=== PATIENT | female | born 1935 | race Caucasian/White ===

== ENCOUNTER 2016-11-14 06:48 | Day surgery (SDC) | payer MEDICARE, BC ==
[~2016-11-14 06:48] MED LIST: Acetaminophen TAB* 325 MG PO PRN; Buffered Lidocaine 1% SYRIN* 5 ML/SYR SYRINGE INTRADERM ONE
[2016-11-14] MEDS ORDERED: Cyclopentolate 1% OPTH.SOL* 2 ML BTL ONE (07:54)
[2016-11-14] MEDS ORDERED: Flurbiprofen 0.03% OPTH.SOL* 2.5 ML BTL ONE (07:54)
[2016-11-14] MEDS ORDERED: Lidocaine 1% MPF* 2 ML VIAL ONE (07:54)
[2016-11-14] MEDS ORDERED: acetaZOLAMIDE TAB* 250 MG ONE (07:54)
[2016-11-14] MEDS ORDERED: Povidone Iodine 5% OPTH* 30 ML BTL ONE (07:55)
[2016-11-14] MEDS ORDERED: Phenylephrine 2.5% OPTH.SOL* 2 ML BTL ONE (07:55)
[2016-11-14] MEDS ORDERED: Neomycin/Polymy/Dex OPTH.SUSP* MAXITROL 0.1% 5 ML ONE (07:55)
[2016-11-14] MEDS ORDERED: Lidocaine 2% EPI 1:200000 MPF* 20 ML VIAL ONE (07:55)
[2016-11-14] MEDS ORDERED: Proparacaine 0.5% OPHTH.SOL* 15 ML BTL ONE (07:55)
[2016-11-14] MEDS ORDERED: fentaNYL* 50 MCG/ML 2 ML VIAL (100 MCG VIAL) ONE (08:27)
[2016-11-14] MEDS ORDERED: Midazolam* 1 MG/ML 2 ML VIAL (2 MG) ONE (08:27)
[2016-11-14 09:14] VITALS: BP 150/61
--- NOTE | 2016-11-15 01:14 | OP ---
OPERATIVE NOTE: DATE OF OPERATION: 11/14/16 - [facility] DATE OF : 37 SURGEON: Harris Cerda MD PREOPERATIVE DIAGNOSIS: Cataract, left eye. POSTOPERATIVE DIAGNOSIS: Cataract, left eye. OPERATIVE PROCEDURE: Phacoemulsification, left eye, with IOL. DESCRIPTION OF PROCEDURE: The patient was brought to the operating room after being given 1/2% Alcaine with epinephrine drops in the preoperative area. The eye was prepped and draped in the usual sterile fashion. Sterile drape and eyelid speculum were placed. Again, topical 1/2% Alcaine with epinephrine was given. A paracentesis incision was made at the 3 o'clock position with the No.75 blade. Clear cornea incision 2.2 x 2.2-mm was created at the 6 o'clock position starting at the anterior limbus using the 2.2-mm keratome. The anterior chamber was irrigated with 0.4 mL of 1% non-preservative intracameral lidocaine and filled with DisCoVisc. A capsulorrhexis was completed using the cystotome and the Utrata forceps. Hydrodissection was performed with balanced salt solution. The lens nucleus was removed with the Phacoemulsification handpiece without incident. Cortex was removed with the irrigation-aspiration handpiece. The capsular bag was re-inflated using DisCoVisc and an [id number] implant was inserted with the shooter. The irrigation-aspiration handpiece was used to remove all residual DisCoVisc. The eye was refilled with balanced salt solution and the wound checked and found to be watertight. Topical Maxitrol drops were given. [id number]/[facility] #: [id number] [facility]
== END 2016-11-14 09:08 | disposition home or self-care (01) ==
LOC: OREAST 06:48
PROVIDERS: ATTEND Specialist
DX: H25.812 Combined forms of age-related cataract, left eye (principal); I10 Essential (primary) hypertension; Z87.891 Personal history of nicotine dependence; M19.90 Unspecified osteoarthritis, unspecified site
CPT/HCPCS: A9270-GY; J2250; J3010; V2632

== ENCOUNTER 2016-11-22 13:19 | Emergency (ER) | payer MEDICARE, BC ==
--- NOTE | 2016-11-22 13:47 | UC ---
Ear Complaint HPI - HPI Summary HPI Summary: Bilat ear pain starting more than a week ago, R>L. Denies recent nasal congestion, dizziness, ear drainage, or cough. Feels like when she's had cerumen buildup in the past. - History of Current Complaint Chief Complaint: UCEar Stated Complaint: EAR ACHE Time Seen by Provider: 11/22/16 13:37 Hx Obtained From: Patient ?: No Onset/Duration: Gradual Onset, Lasting Days Severity Initially: Mild Severity Currently: Mild Aggravating Factors: Nothing Alleviating Factors: Nothing Associated Signs/Symptoms: Negative: Foreign Body Sensation, URI Symptoms - Allergies/Home Medications Allergies/Adverse Reactions: Allergies Allergy/AdvReac Type Severity Reaction Status Date / Time Amlodipine [From [facility]] Allergy Mild Edema Verified 11/22/16 13:26 PMH/Surg Hx/FS Hx/Imm Hx Previously Healthy: Yes - Surgical History Surgical History: Yes Surgery Procedure, Year, and Place: D&C 1985, Tonsillectomy age 10. AGE 22 RIGHT OVARY REMOVED. ANESTHESIA WITH CHILDBIRTHS - Family History Known Family History: Positive: Hypertension - Social History Alcohol Use: None Substance Use Type: None Smoking Status (MU): Former Smoker Type: Cigarettes Amount Used/How Often: 2-3 CIGARETTES PER DAY X 10 YEARS Length of Time of Smoking/Using Tobacco: 25 years Have You Smoked in the Last Year: No When Did the Patient Quit Smoking/Using Tobacco: 2010 Household Exposure Type: Cigarettes Review of Systems Constitutional: Negative Skin: Negative Eyes: Negative ENT: Ear Ache Respiratory: Negative Cardiovascular: Negative Gastrointestinal: Negative Genitourinary: Negative Motor: Negative Neurovascular: Negative Musculoskeletal: Negative Neurological: Negative Psychological: Negative All Other Systems Reviewed And Are Negative: Yes Physical Exam Triage Information Reviewed: Yes Appearance: Well-Appearing, No Pain Distress, Obese Vital Signs: Initial Vital Signs Temp 98.3 F 11/22/16 13:28 Pulse 93 11/22/16 13:28 Resp 20 11/22/16 13:28 BP 150/60 11/22/16 13:28 Pulse Ox 100 11/22/16 13:28 Vital Signs Reviewed: Yes Eye Exam: Normal Eyes: Positive: Conjunctiva Clear ENT: Positive: Hearing grossly normal, Pharynx normal, TMs normal - post-flush, Other: - bilat cerumen impaction Dental: Positive: Gross Decay/Caries @ Neck exam: Normal Respiratory Exam: Normal Respiratory: Positive: Chest non-tender, Lungs clear, Normal breath sounds, No respiratory distress, No accessory muscle use Cardiovascular Exam: Normal Cardiovascular: Positive: RRR, No Murmur Musculoskeletal Exam: Normal Neurological Exam: Normal Neurological: Positive: Alert Psychological Exam: Normal Skin Exam: Normal Ear Complaint Course/Dx - Differential Dx/Diagnosis Provider Diagnoses: bilat cerumen impaction Discharge - Discharge Plan Condition: Stable Disposition: HOME Patient Education Materials: Cerumen Impaction (ED) Referrals: Mark Abarca MD [Primary Care Provider] -
[2016-11-22 14:09] VITALS: BP 150/60
== END 2016-11-22 14:14 | disposition home or self-care (01) ==
LOC: UCCORT 13:19
DX: H61.23 Impacted cerumen, bilateral (principal); E66.9 Obesity, unspecified; Z87.891 Personal history of nicotine dependence
CPT/HCPCS: 99213; G0463

== ENCOUNTER 2016-12-01 08:26 | Emergency (ER) | payer MEDICARE, BC ==
[2016-12-01 08:33] VITALS: BP 172/77
--- NOTE | 2016-12-01 09:00 | UC ---
Respiratory Complaint HPI - HPI Summary HPI Summary: 1 WEEK OF COUGH, MILD AVILES AND SWOLLEN GLANDS. YESTERDAY STARTED FEELING BETTER AND TODAY FEELS EVEN BETTER. WASN'T SURE SHE NEEDED TO COME IN SO CAME IN ANYWAY. NO FEVER. N/V/D. - History of Current Complaint Chief Complaint: UCRespiratory Stated Complaint: SORE THROAT COUGH Time Seen by Provider: 12/01/16 08:48 Hx Obtained From: Patient Onset/Duration: Gradual Onset, Lasting Days, Still Present - BUT MUCH BETTER Timing: Constant Severity Initially: Moderate Severity Currently: Mild Pain Intensity: 0 Pain Scale Used: 0-10 Numeric Character: Cough: Nonproductive Aggravating Factors: Nothing Alleviating Factors: Spontaneous Resolution Associated Signs And Symptoms: Positive: URI, Nasal Congestion. Negative: Fever - Allergies/Home Medications Allergies/Adverse Reactions: Allergies Allergy/AdvReac Type Severity Reaction Status Date / Time Amlodipine [From [facility]] Allergy Mild Edema Verified 12/01/16 08:33 PMH/Surg Hx/FS Hx/Imm Hx Cardiovascular History: Hypertension - Surgical History Surgical History: Yes Surgery Procedure, Year, and Place: D&C 1985, Tonsillectomy age 10. AGE 22 RIGHT OVARY REMOVED. ANESTHESIA WITH CHILDBIRTHS - Family History Known Family History: Positive: Hypertension - Social History Alcohol Use: None Substance Use Type: None Smoking Status (MU): Former Smoker Type: Cigarettes Amount Used/How Often: 2-3 CIGARETTES PER DAY X 10 YEARS Length of Time of Smoking/Using Tobacco: 25 years Have You Smoked in the Last Year: No When Did the Patient Quit Smoking/Using Tobacco: 2010 Household Exposure Type: Cigarettes Review of Systems Constitutional: Negative ENT: Negative Respiratory: Cough Cardiovascular: Negative Gastrointestinal: Negative Neurological: Headache All Other Systems Reviewed And Are Negative: Yes Physical Exam Triage Information Reviewed: Yes Appearance: Well-Appearing, No Pain Distress, Well-Nourished Vital Signs: Initial Vital Signs Temp 97.8 F 12/01/16 08:29 Pulse 97 12/01/16 08:29 Resp 20 12/01/16 08:29 BP 172/77 12/01/16 08:29 Pulse Ox 100 12/01/16 08:29 Vital Signs Reviewed: Yes Eyes: Positive: Conjunctiva Clear ENT: Positive: Hearing grossly normal, Pharynx normal, TMs normal Neck: Positive: Supple, Nontender, No Lymphadenopathy Respiratory Exam: Normal Cardiovascular Exam: Normal Abdomen Description: Positive: Soft Musculoskeletal: Positive: No Edema Neurological: Positive: Alert Psychological: Positive: Age Appropriate Behavior Skin: Negative: rashes UC Diagnostic Evaluation - Laboratory O2 Sat by Pulse Oximetry: 100 Respiratory Course/Dx - Differential Dx/Diagnosis Provider Diagnoses: ACUTE URI - RESOLVING Discharge - Discharge Plan Condition: Stable Disposition: HOME Patient Education Materials: Upper Respiratory Infection (ED) Referrals: Mark Abarca MD [Primary Care Provider] - 2 Days Additional Instructions: MOST UPPER RESPIRATORY INFECTIONS ARE VIRAL AND DO NOT REQUIRE ANTIBIOTICS. GIVEN THAT YOU ARE FEELING SO MUCH BETTER SINCE YESTERDAY YOUR INFECTION IS INDEED LIKELY VIRAL AND SHOULD CONTINUE TO IMPROVE. IF YOU GET WORSE OR DO NOT CONTINUE TO IMPROVE FOLLOW-UP WITH YOUR PCP IN 2 -3 DAYS. YOU MAY ALSO CALL ME HERE TOMORROW BETWEEN 7A-12P IF YOU HAVE ANY QUESTIONS.
== END 2016-12-01 09:11 | disposition home or self-care (01) ==
LOC: UCEAST 08:26
DX: J06.9 Acute upper respiratory infection, unspecified (principal); I10 Essential (primary) hypertension; Z88.8 Allergy status to other drugs, medicaments and biological substances; Z87.891 Personal history of nicotine dependence
CPT/HCPCS: 99211; G0463

== ENCOUNTER 2016-12-02 09:00 | Emergency (ER) | payer MEDICARE, BC ==
[2016-12-02 09:27] VITALS: BP 190/101
--- NOTE | 2016-12-02 09:52 | UC ---
Respiratory Complaint HPI - HPI Summary HPI Summary: PT SEEN HERE YESTERDAY FOR 1 WEEK OF COUGH, AVILES AND SWOLLEN GLANDS. SHE REPORTED SHE WAS FEELING MUCH BETTER SO NO ABX WERE RX. TODAY SHE REPORTS SHE FEELS WORSE AGAIN. - History of Current Complaint Chief Complaint: UCRespiratory Stated Complaint: COUGH Time Seen by Provider: 12/02/16 09:34 Hx Obtained From: Patient Onset/Duration: Gradual Onset, Lasting Days, Still Present Timing: Constant Severity Initially: Moderate Severity Currently: Moderate Pain Intensity: 0 Pain Scale Used: 0-10 Numeric Character: Cough: Nonproductive Aggravating Factors: Nothing Alleviating Factors: Nothing Associated Signs And Symptoms: Positive: URI, Nasal Congestion - Allergies/Home Medications Allergies/Adverse Reactions: Allergies Allergy/AdvReac Type Severity Reaction Status Date / Time Amlodipine [From [facility]] Allergy Mild Edema Verified 12/02/16 09:27 PMH/Surg Hx/FS Hx/Imm Hx Cardiovascular History: Hypertension - Surgical History Surgical History: Yes Surgery Procedure, Year, and Place: D&C 1985, Tonsillectomy age 10. AGE 22 RIGHT OVARY REMOVED. ANESTHESIA WITH CHILDBIRTHS - Family History Known Family History: Positive: Hypertension - Social History Alcohol Use: None Substance Use Type: None Smoking Status (MU): Former Smoker Type: Cigarettes Amount Used/How Often: 2-3 CIGARETTES PER DAY X 10 YEARS Length of Time of Smoking/Using Tobacco: 25 years Have You Smoked in the Last Year: No When Did the Patient Quit Smoking/Using Tobacco: 2010 Household Exposure Type: Cigarettes Review of Systems Constitutional: Negative ENT: Nasal Discharge Respiratory: Cough Cardiovascular: Negative Neurological: Headache All Other Systems Reviewed And Are Negative: Yes Physical Exam Triage Information Reviewed: Yes Appearance: Well-Appearing, No Pain Distress, Well-Nourished Vital Signs: Initial Vital Signs Temp 97.4 F 12/02/16 09:24 Pulse 100 12/02/16 09:24 Resp 20 12/02/16 09:24 BP 190/101 12/02/16 09:24 Pulse Ox 98 12/02/16 09:24 Vital Signs Reviewed: Yes Eyes: Positive: Conjunctiva Clear ENT: Positive: Hearing grossly normal, Pharynx normal, TMs normal Neck: Positive: Supple, Nontender, No Lymphadenopathy Respiratory Exam: Normal Cardiovascular Exam: Normal Abdomen Description: Positive: Soft Musculoskeletal: Positive: No Edema Neurological: Positive: Alert Psychological: Positive: Age Appropriate Behavior Skin: Negative: rashes UC Diagnostic Evaluation - Laboratory O2 Sat by Pulse Oximetry: 98 Respiratory Course/Dx - Differential Dx/Diagnosis Provider Diagnoses: ACUTE BRONCHITIS Discharge - Discharge Plan Condition: Stable Disposition: HOME Prescriptions: Azithromycin [Azithromycin 500 MG TAB] 500 mg PO DAILY #5 tab Patient Education Materials: Acute Bronchitis (ED) Referrals: Mark Abarca MD [Primary Care Provider] - If Needed Additional Instructions: OKAY TO USE OTC COUGH SYRUP. PLEASE MONITOR YOUR BLOOD PRESSURE CLOSELY AND FOLLOW-UP WITH DR. ABARCA WITHIN THE NEXT 2-4 WEEKS IF IT REMAINS ELEVATED AT HOME.
== END 2016-12-02 10:00 | disposition home or self-care (01) ==
LOC: UCEAST 09:00
DX: J20.9 Acute bronchitis, unspecified (principal); I10 Essential (primary) hypertension; Z87.891 Personal history of nicotine dependence
CPT/HCPCS: 99212; G0463

== ENCOUNTER 2017-01-02 06:54 | Day surgery (SDC) | payer MEDICARE, BC ==
[~2017-01-02 06:54] MED LIST changes: +Buffered Lidocaine 0.9% SYRIN* 5 ML/SYR SYRINGE INTRADERM ONE; -Buffered Lidocaine 1% SYRIN* 5 ML/SYR SYRINGE INTRADERM ONE
[2017-01-02] MEDS ORDERED: Midazolam* 1 MG/ML 2 ML VIAL (2 MG) ONE ×2 (08:32→08:48)
[2017-01-02 09:17] VITALS: BP 133/55
--- NOTE | 2017-01-02 10:26 | OP ---
DATE OF OPERATION: 01/02/2017 - [facility] DATE OF : 1935. SURGEON: Harris Cerda M.D. PREOPERATIVE DIAGNOSIS: Cataract right eye. POSTOPERATIVE DIAGNOSIS: Cataract right eye. OPERATIVE PROCEDURE: Phacoemulsification right eye with IOL. DESCRIPTION OF PROCEDURE: The patient was brought to the operating room after being given 1/2% Alcaine with epinephrine drops in the preoperative area. The eye was prepped and draped in the usual sterile fashion. Sterile drape and eyelid speculum were placed. Again, topical 1/2% Alcaine with epinephrine was given. A paracentesis incision was made at the 9 o'clock position with the No.75 blade. Clear cornea incision 2.2 x 2.2-mm was created at the 12 o'clock position starting at the anterior limbus using the 2.2-mm keratome. The anterior chamber was irrigated with 0.4 mL of 1% non-preservative intracameral lidocaine and filled with DisCoVisc. A capsulorrhexis was completed using the cystotome and the Utrata forceps. Hydrodissection was performed with balanced salt solution. The lens nucleus was removed with the Phacoemulsification handpiece without incident. Cortex was removed with the irrigation-aspiration handpiece. The capsular bag was re-inflated using DisCoVisc and an [id number] implant was inserted with the shooter. The irrigation-aspiration handpiece was used to remove all residual DisCoVisc. The eye was refilled with balanced salt solution and the wound checked and found to be watertight. Topical Maxitrol drops were given. [id number]/[facility] #: [id number] [facility]
[2017-01-02] MEDS ORDERED: Lidocaine 1% MPF* 2 ML VIAL ONE (13:30)
[2017-01-02] MEDS ORDERED: Lidocaine 2% EPI 1:200000 MPF* 20 ML VIAL ONE (13:30)
[2017-01-02] MEDS ORDERED: Povidone Iodine 5% OPTH* 30 ML BTL ONE (13:30)
[2017-01-02] MEDS ORDERED: Cyclopentolate 1% OPTH.SOL* 2 ML BTL ONE (13:30)
[2017-01-02] MEDS ORDERED: Flurbiprofen 0.03% OPTH.SOL* 2.5 ML BTL ONE (13:30)
[2017-01-02] MEDS ORDERED: Phenylephrine 2.5% OPTH.SOL* 2 ML BTL ONE (13:30)
[2017-01-02] MEDS ORDERED: Neomycin/Polymy/Dex OPTH.SUSP* MAXITROL 0.1% 5 ML ONE (13:30)
[2017-01-02] MEDS ORDERED: Buffered Lidocaine 0.9% SYRIN* 5 ML/SYR SYRINGE ONE (13:30)
[2017-01-02] MEDS ORDERED: acetaZOLAMIDE TAB* 250 MG ONE (13:30)
[2017-01-02] MEDS ORDERED: Proparacaine 0.5% OPHTH.SOL* 15 ML BTL ONE (13:30)
== END 2017-01-02 09:28 | disposition home or self-care (01) ==
LOC: OREAST 06:54
PROVIDERS: ATTEND Specialist
DX: H25.811 Combined forms of age-related cataract, right eye (principal); H04.123 Dry eye syndrome of bilateral lacrimal glands; Z87.891 Personal history of nicotine dependence; I10 Essential (primary) hypertension; E78.5 Hyperlipidemia, unspecified
CPT/HCPCS: A9270-GY; J2250; V2632

== ENCOUNTER 2017-02-23 16:30 | Emergency (ER) | payer MEDICARE, BC ==
[2017-02-23 16:35] VITALS: BP 195/81
--- NOTE | 2017-02-23 17:35 | UC ---
Throat Pain/Nasal Harrison HPI - HPI Summary HPI Summary: ONE WEEK OF CONGESTON, THREE DAYS SORE THROAT, HEADACHE .DRY COUGH. SYMPTOMS WORSENNG - History of Current Complaint Chief Complaint: UCRespiratory Stated Complaint: THROAT PAIN Time Seen by Provider: 02/23/17 16:31 Hx Obtained From: Patient Onset/Duration: Gradual Onset, Lasting Weeks, Still Present Severity: Moderate Pain Intensity: 6 Pain Scale Used: 0-10 Numeric Cough: Nonproductive Associated Signs & Symptoms: Positive: Hoarseness, Sinus Discomfort, Nasal Discharge - Epiglottits Risk Factors Epiglottis Risk Factors: Negative - Allergies/Home Medications Allergies/Adverse Reactions: Allergies Allergy/AdvReac Type Severity Reaction Status Date / Time Amlodipine [From [facility]] Allergy Intermediate Edema Verified 02/23/17 16:36 PMH/Surg Hx/FS Hx/Imm Hx Previously Healthy: Yes - Surgical History Surgical History: Yes Surgery Procedure, Year, and Place: D&C [address] Stafford office, had a block, Tonsillectomy age 10. AGE 22 RIGHT OVARY REMOVED. ANESTHESIA WITH 3 CHILDBIRTHS. left cataract surgery with IOL - 10/2016 - Family History Known Family History: Positive: Hypertension - Social History Occupation: Retired Lives: With Family Alcohol Use: None Substance Use Type: None Smoking Status (MU): Former Smoker Type: Cigarettes Amount Used/How Often: 2-3 CIGARETTES PER DAY X 10 YEARS Length of Time of Smoking/Using Tobacco: 25 years Have You Smoked in the Last Year: No When Did the Patient Quit Smoking/Using Tobacco: 2010 Household Exposure Type: Cigarettes Review of Systems Constitutional: Negative Skin: Negative Eyes: Negative ENT: Sore Throat, Nasal Discharge, Sinus Congestion Respiratory: Cough Cardiovascular: Negative Gastrointestinal: Negative Genitourinary: Negative Motor: Negative Neurovascular: Negative Musculoskeletal: Negative Neurological: Negative Psychological: Negative All Other Systems Reviewed And Are Negative: Yes Physical Exam Triage Information Reviewed: Yes Appearance: Well-Appearing, No Pain Distress, Well-Nourished Vital Signs: Initial Vital Signs Temp 97.3 F 02/23/17 16:33 Pulse 111 02/23/17 16:33 Resp 18 02/23/17 16:33 BP 195/81 02/23/17 16:33 Pulse Ox 96 02/23/17 16:33 Vital Signs Reviewed: Yes Eye Exam: Normal ENT: Positive: Pharynx normal, Nasal congestion, TM bulging, TM dull Dental Exam: Normal Neck exam: Normal Neck: Positive: Supple, Nontender, No Lymphadenopathy Respiratory Exam: Other - COUGH Respiratory: Positive: Chest non-tender, Lungs clear, Normal breath sounds, No respiratory distress, No accessory muscle use Cardiovascular Exam: Normal Cardiovascular: Positive: RRR, No Murmur, Pulses Normal, Brisk Capillary Refill Abdominal Exam: Normal Abdomen Description: Positive: Nontender, No Organomegaly Musculoskeletal Exam: Normal Neurological Exam: Normal Psychological Exam: Normal Psychological: Positive: Normal Response To Family Skin Exam: Normal Throat Pain/Nasal Course/Dx - Differential Dx/Diagnosis Differential Diagnosis/HQI/PQRI: Pharyngitis, Tonsillitis, URI Provider Diagnoses: SINUSITIS, BRONCHITIS Discharge - Discharge Plan Condition: Stable Disposition: HOME Prescriptions: Azithromycin TAB* [Zithromax TAB (Z-COSMO) 250 mg #6 tabs] 250 mg PO DAILY #6 tab Benzonatate CAP* [Tessalon 100 MG CAP*] 100 mg PO TID PRN #15 cap PRN Reason: Cough Patient Education Materials: Sinusitis (ED), Acute Bronchitis (ED) Referrals: Mark Abarca MD [Primary Care Provider] -
== END 2017-02-23 17:16 | disposition home or self-care (01) ==
LOC: UCEAST 16:30
DX: J32.9 Chronic sinusitis, unspecified (principal); J40 Bronchitis, not specified as acute or chronic; Z87.891 Personal history of nicotine dependence
CPT/HCPCS: 87651; 99212; G0463

== ENCOUNTER 2017-10-20 08:39 | Emergency (ER) | payer MEDICARE, BC ==
--- OUTSIDE RECORDS SUMMARY | 2017-10-20 08:50 | XMS REPORT ---
:1935 External Reference #:[id number] Author Organization [facility] [facility] [employer] Address [address] [place] [address] Phone [phone] Care Team Providers Name Role Phone Mark Abarca M.D. Primary Care Physician Unavailable Payers Type Date Identification Numbers Payment Provider Subscriber Medicare Primary Policy Number: [id number] Medicare - NGS Adalgisa Snowott PayID: [id number] [address] [place] [address] Medicare Primary Policy Number: Dme-Specialty Claims [facility] Adalgisa Snowott [id number] PayID: [id number] [address] [place] [address] [facility] Policy Number: [id number] [place] [employer] [employer] Adalgisa Granadosermott PayID: [id number] [address] [address] [place] [address] Problems Date Description Provider Status Onset: 08/27/2016 Hypercholesterolemia Harris Cerda M.D. Active Onset: 08/27/2016 Essential hypertension Harris Cerda M.D. Active Onset: 08/27/2016 Arthritis Harris Cerda M.D. Active Onset: 10/09/2017 Conjunctival hemorrhage Maria Alejandra Kinney O.D. 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 Family History Date Family Member(s) Problem(s) Comments Father No Current Problems Mother No Current Problems Social History Type Date Description Comments Marital Status Legal Status: Occupation [employer] Work Status Retired ETOH Use Denies alcohol use Smoking Patient is a former smoker Recreational Drug Use Denies Drug Use Daily Caffeine Consumes on average 2 cups of regular coffee per day Allergies, Adverse Reactions, Alerts Date Description Reaction Status Severity Comments 08/27/2016 Norvasc active Medications Medication Date Status Form Strength Qnty SIG Indications Ordering Provider Captopril / Active Tablets 100mg Unknown 0000 Simvastatin / Active Tablets 40mg Unknown 0000 Tizanidine HCL / Active Tablets 2mg take 1 Unknown 0000 tablet by mouth every 8 hours (Up To 3 Times A Day) Melatonin / Active Capsules 2.5mg Unknown 0000 Aspirin / Active Chewtabs 81mg Unknown 0000 Artificial / Active Solution 0.2-0.2-1% as needed Harris JAddie Tears 0000 Arleo, M.D. Ibuprofen / Active Tablets 200mg as needed Unknown 0000 Combigan 01/03/ Hx Solution 0.2-0.5% 5ml One drop Harris J. 2017 - right eye Arleo, 01/04/ twice per M.D. 2017 day Prednisolone 12/28/ Hx Suspension 1% 10ml 1 drop Harris J. Acetate 2017 - right eye Arleo, 10/08/ twice day M.D. 2018 Ciprofloxacin 12/28/ Hx Solution 0.3% 5units instill Harris J. HCL 2017 - one drop Arleo, 01/04/ in the M.D. 2017 right eye three times a day, start the day before surgery Ketorolac 12/28/ Hx Solution 0.5% 10ml 1 drop Harris J. Tromethamine 2017 - right eye Arleo, 10/08/ twice a M.D. 2018 day Ciprofloxacin 11/09/ Hx Solution 0.3% 5ml instill Harris J. HCL 2017 - one drop Arleo, 12/04/ in the M.D. 2017 left eye three times a day, start the day before surgery Prednisolone 11/09/ Hx Suspension 1% 10ml 1 drops Harris J. Acetate 2017 - left eye Arleo, 12/04/ three M.D. 2017 times a day. taper as directed Ilevro 11/09/ Hx Suspension 0.3% 3ml 1 drop Harris J. 2017 - left eye Prashant, 12/04/ once Huy 2017 daily. start day before surgery Results Description No Information Procedures Date CPT Code Description Status 01/02/2017 65898 Extracapsular Cataract Extraction W/Intraocular Lens Completed 11/14/2016 36768 Extracapsular Cataract Extraction W/Intraocular Lens Completed 11/09/2016 50362 Ophthalmic Biometry Completed 11/09/2016 23668 Ophthalmic Biometry Completed 08/27/2016 76482 New Patient Comprehensive Exam Completed 03/22/2005 81446 Cancelled Appointment Completed Encounters Type Date Location Provider CPT E/M Dx Office Visit 11/09/2016 Harris Cerda MD, Harris BlandonAddie Cerda, [id number] H25.812 11:45a ruby Son H25.811 Plan of Care 10/09/2017 - Maria Alejandra Kinney O.D.H11.31 Conjunctival hemorrhage, right eyeComments:Smoking can increase the risk of developing or worsening any eye related disease, as well as affect your overall health. If you are a smoker, we strongly recommend that you quit.If you are not a smoker, we strongly recommend that you do not start. A conjunctival hemorrhage is a broken blood vessel on the surface of your eye usually caused by dryness or straining. It is like a bruise and it is not harmful. If the eye is uncomfortable at all, we recommend you use tear drops 3 times a day until it is resolved.Follow up:as needed
[2017-10-20 09:02] VITALS: BP 146/59
--- NOTE | 2017-10-20 09:24 | UC ---
Respiratory Complaint HPI - HPI Summary HPI Summary: pt has had a cough and very runny nose for 3-4 days, got worse this am, no nasal casey and cough worse. denies SOB but cough is making throat hurt as well. - History of Current Complaint Chief Complaint: UCRespiratory Stated Complaint: COUGH SORE THROAT RESP ISSUE Time Seen by Provider: 10/20/17 09:11 Hx Obtained From: Patient Onset/Duration: Gradual Onset Pain Intensity: 0 Character: Cough: Nonproductive Aggravating Factors: Nothing Alleviating Factors: Nothing Associated Signs And Symptoms: Positive: URI, Nasal Congestion. Negative: Fever , Chills, Dizziness - Allergies/Home Medications Allergies/Adverse Reactions: Allergies Allergy/AdvReac Type Severity Reaction Status Date / Time MS Amlodipine [From [facility]] Allergy Intermediate Edema Verified 02/23/17 16:36 PMH/Surg Hx/FS Hx/Imm Hx Previously Healthy: Yes Endocrine History: Dyslipidemia Cardiovascular History: Hypertension - Surgical History Surgical History: Yes Surgery Procedure, Year, and Place: D&C [address] Stafford office, had a block, Tonsillectomy age 10. AGE 22 RIGHT OVARY REMOVED. ANESTHESIA WITH 3 CHILDBIRTHS. left cataract surgery with IOL - 10/2016 - Family History Known Family History: Positive: Hypertension - Social History Occupation: Retired Lives: Alone Alcohol Use: None Substance Use Type: None Smoking Status (MU): Former Smoker Type: Cigarettes Amount Used/How Often: 2-3 CIGARETTES PER DAY X 10 YEARS Length of Time of Smoking/Using Tobacco: 25 years Have You Smoked in the Last Year: No When Did the Patient Quit Smoking/Using Tobacco: 2010 Household Exposure Type: Cigarettes Review of Systems Constitutional: Fatigue Skin: Negative ENT: Sore Throat, Sinus Congestion Respiratory: Cough Cardiovascular: Negative Gastrointestinal: Negative Genitourinary: Negative Neurological: Negative Psychological: Negative Is Patient Immunocompromised?: No All Other Systems Reviewed And Are Negative: Yes Physical Exam Triage Information Reviewed: Yes Appearance: Well-Appearing, No Pain Distress, Obese Vital Signs: Initial Vital Signs Temp 97.9 F 10/20/17 08:51 Pulse 104 10/20/17 08:51 Resp 20 10/20/17 08:51 BP 146/59 10/20/17 08:51 Pulse Ox 99 10/20/17 08:51 Vital Signs Reviewed: Yes Eyes: Positive: Conjunctiva Clear ENT: Positive: Pharyngeal erythema, Nasal congestion, Nasal drainage, TMs normal. Negative: Sinus tenderness Neck exam: Normal Neck: Positive: Supple, Nontender, No Lymphadenopathy Respiratory Exam: Normal Respiratory: Positive: Lungs clear Cardiovascular Exam: Normal Cardiovascular: Positive: RRR Neurological Exam: Normal Neurological: Positive: Alert Psychological Exam: Normal Skin Exam: Normal Skin: Negative: rashes UC Diagnostic Evaluation - Laboratory O2 Sat by Pulse Oximetry: 99 Respiratory Course/Dx - Differential Dx/Diagnosis Differential Diagnosis/HQI/PQRI: Bronchitis, Influenza, Lower Resp Infection, Sinusitis Provider Diagnoses: URI Discharge - Sign-Out/Discharge Documenting (check all that apply): Discharge/Admit/Transfer - Discharge Plan Condition: Good Disposition: HOME Prescriptions: Amoxicillin PO (*) [Amoxicillin 500 MG CAP*] 500 mg PO Q12H #20 cap Referrals: Mark Abarca MD [Primary Care Provider] - 2 Days (if no better) Additional Instructions: drink plenty of fluids use tylenol 650mg every 6 hours if needed for pain or fever start amoxicillin as prescribed report to ER if you experience shortness or breath, chest pain or fever above 101 - Billing Disposition and Condition Condition: GOOD Disposition: HOME
== END 2017-10-20 09:30 | disposition home or self-care (01) ==
LOC: UCEAST 08:39
DX: J06.9 Acute upper respiratory infection, unspecified (principal); E78.5 Hyperlipidemia, unspecified; I10 Essential (primary) hypertension; Z88.8 Allergy status to other drugs, medicaments and biological substances; Z87.891 Personal history of nicotine dependence
CPT/HCPCS: 99212; G0463

== ENCOUNTER 2018-10-12 08:41 | Emergency (ER) | payer MEDICARE, BC ==
--- NOTE | 2018-10-12 09:36 | UC ---
Back Pain HPI - HPI Summary HPI Summary: lifted a heavy TV on Saturday(2 days ago) causing her low back pain. pt points to her L S.I. joint. took some motrin which helps pain. - History of Current Complaint Chief Complaint: UCBackPain Stated Complaint: LOW BACK PAIN Time Seen by Provider: 10/12/18 09:04 Hx Obtained From: Patient Onset/Duration: Sudden Onset Timing: Constant Pain Intensity: 0 Aggravating Factor(s): Bending Alleviating Factor(s): OTC Meds Associated Signs And Symptoms: Positive: Other - no saddle anesthesia. Negative : Fever, Weakness, Numbness, Tingling, Abdominal Pain, Flank Pain, Bladder Incontinence, Bowel Incontinence - Risk Factors Cauda Equina Risk Factors: Negative Epidural Abscess Risk Factors: Negative - Allergies/Home Medications Allergies/Adverse Reactions: Allergies Allergy/AdvReac Type Severity Reaction Status Date / Time amlodipine [From [facility]] Allergy Edema Verified 10/12/18 09:01 PMH/Surg Hx/FS Hx/Imm Hx - Additional Past Medical History Additional PMH: hematuria Endocrine History: Dyslipidemia Cardiovascular History: Hypertension - Surgical History Surgical History: Yes Surgery Procedure, Year, and Place: D&C [address] Stafford office, had a block, Tonsillectomy age 10. AGE 22 RIGHT OVARY REMOVED. ANESTHESIA WITH 3 CHILDBIRTHS. left cataract surgery with IOL - 10/2016 - Family History Known Family History: Positive: Hypertension - Social History Alcohol Use: None Substance Use Type: None Smoking Status (MU): Former Smoker Type: Cigarettes Amount Used/How Often: 2-3 CIGARETTES PER DAY X 10 YEARS Length of Time of Smoking/Using Tobacco: 25 years Have You Smoked in the Last Year: No When Did the Patient Quit Smoking/Using Tobacco: 2010 Household Exposure Type: Cigarettes Review of Systems All Other Systems Reviewed And Are Negative: Yes Constitutional: Negative: Fever Skin: Negative: Rash Gastrointestinal: Negative: Abdominal Pain Musculoskeletal: Positive: Other: - l low back pain Neurological: Negative: Weakness, Paresthesia, Numbness Physical Exam Triage Information Reviewed: Yes Appearance: Well-Appearing Vital Signs: Initial Vital Signs Temp 98.1 F 10/12/18 09:03 Pulse 101 10/12/18 09:03 Resp 20 10/12/18 09:03 BP 172/68 10/12/18 09:03 Pulse Ox 100 10/12/18 09:03 Vital Signs Reviewed: Yes Eyes: Positive: Conjunctiva Clear ENT: Positive: Normal ENT inspection Neck: Positive: Supple, Nontender, No Lymphadenopathy, Other: - c-spine non tender Respiratory: Positive: Lungs clear, Normal breath sounds, No respiratory distress Cardiovascular: Positive: RRR, No Murmur Abdomen Description: Positive: Nontender, No Organomegaly, Soft. Negative: Distended, Guarding, Pulsatile Mass Bowel Sounds: Positive: Present Musculoskeletal: Positive: Other: - neck/back/pelvis with no gross deformity, swelling or rash. Spine is non tender and gross rom is intact. Tender over L S.I. joint. and standing reproduces/worsens pain in same area. 5/5 strength, 2+ reflexes and sensation intact x4. no saddle anesthesia. Slow but steady gait with her cane. 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 Back Pain Course/Dx - Course Course Of Treatment: CURRENT BP D/W PT. HX HTN PLUS NOTES WHITE COAT HTN. STATES MONITORS HER BP WITH HER PCP. NO CONCERN FOR HYPERTENSIVE URGENCY OR EMERGENCY. REPEAT BP AT TIME OF DISCHARGE 141/66. - Differential Dx/Diagnosis Differential Diagnosis/HQI/PQRI: Other - NO CONCERN FOR INFECTION, ACUTE ABDOMEN OR CAUDA EQUINA. Provider Diagnosis: Sacroiliac joint pain Discharge - Sign-Out/Discharge Documenting (check all that apply): Patient Departure All imaging exams completed and their final reports reviewed: Yes - Discharge Plan Condition: Stable Disposition: HOME Patient Education Materials: Sacroiliitis (ED) Referrals: Mark Abarca MD [Primary Care Provider] - 5 Days - Billing Disposition and Condition Condition: STABLE Disposition: Home - Attestation Statements Provider Attestation: I was available for consult. This patient was seen by the [facility]. The patient was not presented to , seen by or examined by sd -Benson Puga MD
[2018-10-12 10:26] VITALS: BP 144/66
== END 2018-10-12 10:32 | disposition home or self-care (01) ==
LOC: UCCORT 08:41
DX: M53.3 Sacrococcygeal disorders, not elsewhere classified (principal); E78.5 Hyperlipidemia, unspecified; I10 Essential (primary) hypertension; Z87.891 Personal history of nicotine dependence; Z88.8 Allergy status to other drugs, medicaments and biological substances; X50.0XXA Overexertion from strenuous movement or load, initial encounter; Y92.019 Unspecified place in single-family (private) house as the place of occurrence of the external cause
CPT/HCPCS: 72170; 99211; G0463

== ENCOUNTER 2018-11-16 08:22 | Emergency (ER) | payer MEDICARE, BC ==
[2018-11-16 08:50] VITALS: BP 150/73
--- NOTE | 2018-11-16 09:05 | UC ---
Throat Pain/Nasal [place] HPI - HPI Summary HPI Summary: 83-year-old female ill with cold symptoms over the past 2 days with dry cough, mild left earache which resolved in the past 24 hours, runny nose and sore throat. She did receive a flu shot in the fall, she is a nonsmoker however she has been around her son throughout her lifetime who is a smoker. - History of Current Complaint Chief Complaint: UCRespiratory Stated Complaint: COUGH, HEADACHE, CONGESTION Time Seen by Provider: 11/16/18 08:42 Hx Obtained From: Patient ?: No Onset/Duration: Gradual Onset Severity: Mild Pain Intensity: 5 Cough: Nonproductive Associated Signs & Symptoms: Positive: Nasal Discharge - Allergies/Home Medications Allergies/Adverse Reactions: Allergies Allergy/AdvReac Type Severity Reaction Status Date / Time amlodipine [From [facility]] Allergy Edema Verified 11/16/18 08:44 PMH/Surg Hx/FS Hx/Imm Hx Previously Healthy: Yes Cardiovascular History: Hypertension - Surgical History Surgical History: Yes Surgery Procedure, Year, and Place: D&C [address] Stafford office, had a block, Tonsillectomy age 10. AGE 22 RIGHT OVARY REMOVED. ANESTHESIA WITH 3 CHILDBIRTHS. left cataract surgery with IOL - 10/2016 - Family History Known Family History: Positive: Hypertension - Social History Alcohol Use: None Substance Use Type: None Smoking Status (MU): Former Smoker Type: Cigarettes Amount Used/How Often: 2-3 CIGARETTES PER DAY X 10 YEARS Length of Time of Smoking/Using Tobacco: 25 years Have You Smoked in the Last Year: No When Did the Patient Quit Smoking/Using Tobacco: 2010 Household Exposure Type: Cigarettes Review of Systems All Other Systems Reviewed And Are Negative: Yes ENT: Positive: Sore Throat, Ear Ache - Mild left earache yesterday which resolved on its own., Nasal Discharge Respiratory: Positive: Cough - Dry nonproductive cough. Denies any shortness of breath. Motor: Positive: Other - Patient uses a cane for ambulation and usually needs some assistance walking if she has to walk a distance. Is Patient Immunocompromised?: No Physical Exam Triage Information Reviewed: Yes Appearance: Well-Appearing, No Pain Distress, Well-Nourished Vital Signs: Initial Vital Signs Temp 98.3 F 11/16/18 08:46 Pulse 94 11/16/18 08:46 Resp 16 11/16/18 08:46 BP 150/73 11/16/18 08:46 Pulse Ox 100 11/16/18 08:46 Vital Signs Reviewed: Yes Eyes: Positive: Conjunctiva Clear ENT: Positive: Pharynx normal, Nasal congestion, Uvula midline, Other - Unable to visualize tympanic membranes due to cerumen in the ear canals. Neck: Positive: Supple, Nontender, No Lymphadenopathy Respiratory: Positive: Lungs clear, Normal breath sounds, No respiratory distress, No accessory muscle use Cardiovascular: Positive: RRR, No Murmur, Pulses Normal, Brisk Capillary Refill Abdomen Description: Positive: Nontender, No Organomegaly, Soft Bowel Sounds: Positive: Present Musculoskeletal: Positive: Strength Intact, No Edema, Other: - Tenderness Neurological: Positive: Alert, Muscle Tone Normal Psychological Exam: Normal Throat Pain/Nasal Course/Dx - Course Course Of Treatment: Chest x-ray:REPORT: Elevated lung volumes and patchy rarefaction of the mid to upper lung zone interstitial markings. No focal pulmonary lesion, compelling alveolar consolidation, pleural effusion, pneumothorax. The heart, pulmonary vasculature, and mediastinal contours are unremarkable. Thoracic degenerative spondylosis. IMPRESSION: #. Stigmata of obstructive lung disease. No acute pulmonary or cardiac process evident. Rapid strep: negative - Differential Dx/Diagnosis Provider Diagnosis: URI (upper respiratory infection) Discharge - Sign-Out/Discharge Documenting (check all that apply): Patient Departure All imaging exams completed and their final reports reviewed: Yes - Discharge Plan Condition: Fair Disposition: HOME Patient Education Materials: Upper Respiratory Infection (DC) Referrals: Mark Abarca MD [Primary Care Provider] - Additional Instructions: Definite follow-up with Dr. Abarca if any worsening symptoms. Warm saltwater gargles, throat lozenges. - Billing Disposition and Condition Condition: FAIR Disposition: Home - Attestation Statements Provider Attestation: Per institutional requirements, I have reviewed the chart, however, I was not consulted specifically or made aware of this patient by the midlevel provider. I did not personally evaluate, interact with , or disposition this patient.
== END 2018-11-16 09:50 | disposition home or self-care (01) ==
LOC: UCCORT 08:22
DX: J06.9 Acute upper respiratory infection, unspecified (principal); I10 Essential (primary) hypertension; Z87.891 Personal history of nicotine dependence; Z88.8 Allergy status to other drugs, medicaments and biological substances
CPT/HCPCS: 71046; 87651; 99211; G0463

== ENCOUNTER 2019-03-22 12:55 | Emergency (ER) | payer MEDICARE, BC ==
[2019-03-22 13:17] VITALS: BP 142/71
--- NOTE | 2019-03-22 13:49 | UC ---
Knee Pain HPI - HPI Summary HPI Summary: CHIEF COMPLAINT and HPI: This is a 83 year old female who fell onto her right side twice in the last week. She slipped first from a chair and then from a sofa. She denies injury but today comes to the [facility] for "buckling" of her Left knee. NO pain on right or left side. No evident injury. VITAL SIGNS & SaO2 REVIEWED. Within normal limits unless noted here. 142/71 NURSES NOTE REVIEWED. - History of Current Complaint Chief Complaint: UCLowerExtremity Stated Complaint: KNEE / HIP INJURY Time Seen by Provider: 03/22/19 13:45 Pain Intensity: 4 - Allergies/Home Medications Allergies/Adverse Reactions: Allergies Allergy/AdvReac Type Severity Reaction Status Date / Time amlodipine [From [facility]] Allergy Edema Verified 03/22/19 13:18 Home Medications: Home Medications Terbinafine HCl 250 mg PO 03/22/19 [History] PMH/Surg Hx/FS Hx/Imm Hx - Additional Past Medical History Additional PMH: PAST MEDICAL HISTORY- CHRONIC and RECURRENT HEALTH PROBLEM LIST REVIEWED. Information relevant to present complaint: HYPERTENSION; ARTHRITIS. VISIT HISTORY REVIEWED. MEDICATIONS & ALLERGIES REVIEWED. HYPERTENSION STATUS: On captopril. FAMILY HISTORY: Positive for: hypertension SOCIAL HISTORY: lives at home with two helpers; son also helps her. She still drives. Uses a walker. Previously Healthy: Yes - Surgical History Surgical History: Yes Surgery Procedure, Year, and Place: D&C [address] Stafford office, had a block, Tonsillectomy age 10. AGE 22 RIGHT OVARY REMOVED. ANESTHESIA WITH 3 CHILDBIRTHS. left cataract surgery with IOL - 10/2016 - Family History Known Family History: Positive: Hypertension - Social History Alcohol Use: None Substance Use Type: None Smoking Status (MU): Former Smoker Type: Cigarettes Amount Used/How Often: 2-3 CIGARETTES PER DAY X 10 YEARS Length of Time of Smoking/Using Tobacco: 25 years Have You Smoked in the Last Year: No When Did the Patient Quit Smoking/Using Tobacco: 2010 Household Exposure Type: Cigarettes Review of Systems All Other Systems Reviewed And Are Negative: Yes Constitutional: Positive: Negative Skin: Positive: Negative Eyes: Positive: Negative Respiratory: Positive: Negative Cardiovascular: Positive: Negative Gastrointestinal: Positive: Negative Genitourinary: Positive: Negative Musculoskeletal: Positive: Myalgia - left knee: discomfort and buckling intermittent. Negative: Edema Is Patient Immunocompromised?: No Physical Exam - Summary Physical Exam Summary: Appearance: The patient is well-appearing, is in no pain or distress, and is well-nourished. Eyes: Conjunctiva are clear. Pupils are equal and reactive to light and accommodation. Extra ocular muscle movement is intact. ENT: The hearing is grossly normal, the pharynx is normal, and the TMs are normal. There is no muffled or hoarse voice. No stridor. Neck: The neck is supple and there is no lymphadenopathy. Respiratory: The chest is non-tender to palpation and without crepitus. The lungs are clear, there are normal breath sounds, and there is no respiratory distress. No wheezes, rales or rhonchi. Cardiovascular: Heart sounds reveal a regular rate and rhythm. There are no clicks, rubs or murmurs. There are no carotid bruits or thrills. Circulation is grossly intact. Abdomen: The abdomen is soft and nontender. There is no organomegaly. Bowel sounds are present and within normal limits. No point tenderness at McBurneys point. No CVA tenderness. Musculoskeletal: Strength is intact. The patient moves all extremities. Walks slowly with walker. Left knee: no instability or laxity; no point tenderness hips or pelvis; no obvious trauma right side or left side. Neurological: The patient is alert. Motor and sensory are examination grossly intact. Speech is normal. Psychological: The patient displays age appropriate behavior, and is conversant. GCS=15. Skin: Negative for rashes. Triage Information Reviewed: Yes Vital Signs: Initial Vital Signs Temp 98 F 03/22/19 13:13 Pulse 100 03/22/19 13:13 Resp 20 03/22/19 13:13 BP 142/71 03/22/19 13:13 Pulse Ox 100 03/22/19 13:13 Knee Pain Course/Dx - Course Course Of Treatment: 83 year old with 2 falls from a chair and sofa in the last week. She says she wasn't paying attention and slipped off. With the help of her son, she stood on her own. No pain. Now complains of left knee giving way intermittently. Again no pain. Physical examination of left knee shows no evident trauma, instability or pain. Dx is intermittent laxity of left knee. - Differential Dx/Diagnosis Differential Diagnosis/HQI/PQRI: Sprain, Strain Provider Diagnosis: Knee sprain Discharge ED - Sign-Out/Discharge Documenting (check all that apply): Patient Departure All imaging exams completed and their final reports reviewed: Yes - Discharge Plan Condition: Stable Disposition: HOME Patient Education Materials: Knee Sprain (DC) Referrals: Mark Abarca MD [Primary Care Provider] - Additional Instructions: [facility] THAT FEELS COMFORTABLE; USE BRYCE UNDER IT. WARM MOIST HEAT IN THE MORNING; ICE TO KNEE IF IT HURTS AFTER WALKING; USE YOUR CANE AND IF KNEE FEELS "LOOSE" PUT ON BRACE. If you have continued instability or pain, recheck with your doctor or here for further evaluation. PLEASE SEEK CARE AT THE EMERGENCY DEPARTMENT IF SYMPTOMS WORSEN OR IF NEW SYMPTOMS DEVELOP. FOLLOW UP WITH YOUR PRIMARY CARE PHYSICIAN IF CONDITION CONTINUES BEYOND 5 DAYS WITHOUT IMPROVEMENT. YOUR DIAGNOSIS IS: LEFT KNEE SPRAIN YOUR PRESCRIPTION RECOMMENDATION IS: NONE. OTHER INSTRUCTIONS: Hypertension Discharge Instructions: Your blood pressure reading today was 142/71 , indicating HYPERTENSION. Follow- up with your primary care provider within 4 weeks for blood pressure check and appropriate recommendations and treatment, as needed. FOR PAIN AND/OR SLEEP: For pain: Ibuprofen (Motrin and other brand names) 400-600mg PLUS acetaminophen (Tylenol and other brand names) 500mg - 1000mg every 8 hours. - Billing Disposition and Condition Condition: STABLE Disposition: Home
== END 2019-03-22 14:15 | disposition home or self-care (01) ==
LOC: UCEAST 12:55
DX: S83.92XA Sprain of unspecified site of left knee, initial encounter (principal); I10 Essential (primary) hypertension; Z88.8 Allergy status to other drugs, medicaments and biological substances; Z79.899 Other long term (current) drug therapy; Z87.891 Personal history of nicotine dependence; X58.XXXA Exposure to other specified factors, initial encounter; Y92.9 Unspecified place or not applicable
CPT/HCPCS: 99212; G0463

== ENCOUNTER 2020-08-17 09:25 | Inpatient (IN) ==
[2020-08-17] MEDS ORDERED: NS 0.9% 1000 ml BAG 1,000 ML IV SCH (10:30)
[2020-08-17 12:25] LABS: Urine Appearance Cloudy; Urine Bilirubin Negative (Negative); Urine Blood Negative (Negative); Urine Color Yellow; Urine Glucose Negative (Negative); Urine Ketones Negative (Negative); Urine Nitrite Negative (Negative); Urine Protein 1+(30 mg/dL) (Negative); Urine Specific Gravity 1.012 (1.010-1.030); Urine Urobilinogen Negative (Negative)
[2020-08-17 12:40] LABS: Urine Bacteria Absent (Absent); Urine Red Blood Cell 2+(6-10/hpf) (Absent); Urine Squamous Epithelial Cell Present (Absent); Urine White Blood Cell 3+(>20/hpf) (Absent)
[2020-08-17] MEDS ORDERED: cefTRIAXone 1 gm/50 mL NS BAG 1 GM/50 ML BAG IV ONE (13:05)
[2020-08-17] MEDS: NS 0.9% 1000 ml BAG 1,000 ML IV SCH ×2 (13:21→21:32)
[2020-08-17 13:23] LABS: ABS Eosinophils 0.1 10^3/ul (0-0.6); ABS Lymphocytes 1.3 10^3/ul (1.0-4.8); ABS Monocytes 0.6 10^3/ul (0-0.8); ABS Neutrophils 5.9 10^3/ul (1.5-7.7); Eosinophil % 1.3 %; Hematocrit 37 % (35-47); Hemoglobin 12.2 g/dL (12.0-16.0); Lymphocyte % 16.4 %; Mean Corpuscular HGB Conc 33 g/dL (31-36); Mean Corpuscular Hemoglobin 30 pg (27-31); Mean Corpuscular Volume 89 fL (80-97); Mean Platelet Volume 6.7 fL (7.4-10.4); Nucleated Red Blood Cells % 0.1; Platelet Count 291 10^3/uL (150-450); Red Cell Distribution Width 13 % (10-15); White Blood Count 7.9 10^3/uL (3.5-10.8)
[2020-08-17 13:38] LABS: Albumin 4.2 g/dL (3.2-5.2); Albumin/Globulin Ratio 1.4 (1-3); BUN/Creatinine Ratio 24.5 (8-20); Calcium 10.1 mg/dL (8.6-10.3); EGFR African American 68.6 (>60); EGFR Non-African American 56.7 (>60); Globulin 2.9 g/dL (2-4); Potassium 3.9 mmol/L (3.5-5.0); Total Bilirubin 0.3 mg/dL (0.2-1.0); Total Protein 7.1 g/dL (6.4-8.9)
[2020-08-17 15:42] LABS: C Reactive Protein 8.62 mg/L (<8.01)
[2020-08-17 16:58] LABS: HDL Cholesterol 51.2 mg/dL
[2020-08-17] MEDS ORDERED: Aspirin EC 81 mg TAB.EC (enteric coated) PO SCH (18:00)
[2020-08-17] MEDS ORDERED: Gadobenate (CONTRAST) 529 MG/ML 10 ML SDV IV ONE (19:22)
[2020-08-18] MEDS ORDERED: Polyethylene Glycol 3350 17 GM PACKET PO PRN (08:16)
[2020-08-18] MEDS ORDERED: Magnesium Hydroxide LIQ 30 ML UDC PO PRN (08:16)
[2020-08-18] MEDS: Enoxaparin 40 MG/0.4 ML SYR SUBCUT SCH (08:45)
[2020-08-18] MEDS: Senna TAB 8.6 mg TAB PO PRN (08:45)
[2020-08-18] MEDS ORDERED: cefTRIAXone 1 gm/50 mL NS BAG 1 GM/50 ML BAG IVPB SCH (09:00)
[2020-08-18] MEDS ORDERED: Perflutren Lipid Microsphere 3 ML VIAL ONE (09:43)
[2020-08-18] MEDS: Aspirin EC 81 mg TAB.EC (enteric coated) PO SCH (13:12)
[2020-08-18] MEDS: NS 0.9% 1000 ml BAG 1,000 ML IV SCH (21:25)
[2020-08-19] MEDS: Senna TAB 8.6 mg TAB PO PRN (08:45)
[2020-08-19] MEDS: Aspirin EC 81 mg TAB.EC (enteric coated) PO SCH (08:45)
[2020-08-19] MEDS: Enoxaparin 40 MG/0.4 ML SYR SUBCUT SCH (08:45)
[2020-08-20] MEDS: Aspirin EC 81 mg TAB.EC (enteric coated) PO SCH (09:29)
[2020-08-20] MEDS: Enoxaparin 40 MG/0.4 ML SYR SUBCUT SCH (09:30)
[2020-08-21 06:02] LABS: ABS Eosinophils 0.2 10^3/ul (0-0.6); ABS Lymphocytes 1.8 10^3/ul (1.0-4.8); ABS Monocytes 0.8 10^3/ul (0-0.8); ABS Neutrophils 5.2 10^3/ul (1.5-7.7); Eosinophil % 2.7 %; Hematocrit 35 % (35-47); Lymphocyte % 22.5 %; Mean Corpuscular HGB Conc 34 g/dL (31-36); Mean Corpuscular Hemoglobin 30 pg (27-31); Mean Corpuscular Volume 88 fL (80-97); Mean Platelet Volume 6.9 fL (7.4-10.4); Platelet Count 293 10^3/uL (150-450); Red Blood Count 3.99 10^6 /uL (3.70-4.87); Red Cell Distribution Width 13 % (10-15); White Blood Count 8.1 10^3/uL (3.5-10.8)
[2020-08-21 06:16] LABS: BUN/Creatinine Ratio 17.1 (8-20); Calcium 10.1 mg/dL (8.6-10.3); EGFR African American 60.4 (>60); EGFR Non-African American 49.9 (>60); Potassium 3.6 mmol/L (3.5-5.0)
[2020-08-21] MEDS ORDERED: NS 0.9% 1000 ml BAG 1,000 ML IV SCH (08:15)
[2020-08-21] MEDS: Aspirin EC 81 mg TAB.EC (enteric coated) PO SCH (08:27)
[2020-08-21] MEDS: Enoxaparin 40 MG/0.4 ML SYR SUBCUT SCH (08:28)
[2020-08-22 06:47] LABS: BUN/Creatinine Ratio 21.6 (8-20); Calcium 9.3 mg/dL (8.6-10.3); EGFR African American 53.9 (>60); EGFR Non-African American 44.5 (>60); Potassium 3.6 mmol/L (3.5-5.0)
[2020-08-22] MEDS: Aspirin EC 81 mg TAB.EC (enteric coated) PO SCH (09:48)
[2020-08-22] MEDS: Enoxaparin 40 MG/0.4 ML SYR SUBCUT SCH (09:48)
[2020-08-23 07:40] LABS: Calcium 9.6 mg/dL (8.6-10.3); Potassium 3.8 mmol/L (3.5-5.0)
[2020-08-23 07:46] LABS: BUN/Creatinine Ratio 26.3 (8-20); EGFR African American 52.8 (>60); EGFR Non-African American 43.6 (>60)
[2020-08-23] MEDS: Enoxaparin 40 MG/0.4 ML SYR SUBCUT SCH (09:43)
[2020-08-23] MEDS: Aspirin EC 81 mg TAB.EC (enteric coated) PO SCH (09:46)
[2020-08-23 16:47] VITALS: BP 137/69
== END 2020-08-23 16:20 | DRG 65 ==
LOC: MEDTELE 09:25 → ED 09:25 → OBSVTOIN 16:01 → MEDTELE 18:41
PROVIDERS: ADMIT Internal Medicine; ATTEND Student in an Organized Health Care Education/Training Program

== ENCOUNTER 2020-08-23 14:21 | Inpatient (IN) ==
[2020-08-23] MEDS ORDERED: Magnesium Hydroxide LIQ 30 ML UDC PO PRN (18:36)
[2020-08-24 07:44] LABS: ABS Eosinophils 0.2 10^3/ul (0-0.6); ABS Monocytes 0.6 10^3/ul (0-0.8); ABS Neutrophils 4.6 10^3/ul (1.5-7.7); Eosinophil % 3.1 %; Hematocrit 37 % (35-47); Hemoglobin 12.3 g/dL (12.0-16.0); Lymphocyte % 26.6 %; Mean Corpuscular HGB Conc 33 g/dL (31-36); Mean Corpuscular Hemoglobin 30 pg (27-31); Mean Corpuscular Volume 90 fL (80-97); Mean Platelet Volume 7.1 fL (7.4-10.4); Nucleated Red Blood Cells % 0.1; Platelet Count 336 10^3/uL (150-450); Red Blood Count 4.09 10^6 /uL (3.70-4.87); Red Cell Distribution Width 13 % (10-15); White Blood Count 7.4 10^3/uL (3.5-10.8)
[2020-08-24 08:52] LABS: Albumin 4.2 g/dL (3.2-5.2); Calcium 10.2 mg/dL (8.6-10.3); Potassium 4.1 mmol/L (3.5-5.0); Total Bilirubin 0.4 mg/dL (0.2-1.0)
[2020-08-24 08:58] LABS: Albumin/Globulin Ratio 1.3 (1-3); BUN/Creatinine Ratio 25.5 (8-20); EGFR African American 57.3 (>60); EGFR Non-African American 47.3 (>60); Globulin 3.3 g/dL (2-4); Total Protein 7.5 g/dL (6.4-8.9)
[2020-08-24] MEDS: Aspirin EC 81 mg TAB.EC (enteric coated) PO SCH (09:04)
[2020-08-24] MEDS: Enoxaparin 40 MG/0.4 ML SYR SUBCUT SCH (09:07)
[2020-08-25] MEDS: Enoxaparin 40 MG/0.4 ML SYR SUBCUT SCH (09:20)
[2020-08-25] MEDS: Aspirin EC 81 mg TAB.EC (enteric coated) PO SCH (09:20)
[2020-08-26] MEDS: Aspirin EC 81 mg TAB.EC (enteric coated) PO SCH (08:49)
[2020-08-26] MEDS: Enoxaparin 40 MG/0.4 ML SYR SUBCUT SCH (08:50)
[2020-08-26 12:37] LABS: Urine Appearance Clear; Urine Bilirubin Negative (Negative); Urine Blood 2+ (Negative); Urine Color Yellow; Urine Glucose Negative (Negative); Urine Ketones Trace (Negative); Urine Nitrite Negative (Negative); Urine Protein Negative (Negative); Urine Specific Gravity 1.012 (1.010-1.030); Urine Urobilinogen Negative (Negative)
[2020-08-26 12:54] LABS: Urine Bacteria Absent (Absent); Urine Red Blood Cell 2+(6-10/hpf) (Absent); Urine Squamous Epithelial Cell Present (Absent); Urine White Blood Cell Trace(0-5/hpf) (Absent)
[2020-08-26] MEDS: Senna TAB 8.6 mg TAB PO PRN (20:22)
[2020-08-27 06:28] LABS: ABS Eosinophils 0.2 10^3/ul (0-0.6); ABS Lymphocytes 1.8 10^3/ul (1.0-4.8); ABS Monocytes 0.7 10^3/ul (0-0.8); ABS Neutrophils 4.3 10^3/ul (1.5-7.7); Eosinophil % 3.3 %; Hematocrit 32 % (35-47); Lymphocyte % 24.8 %; Mean Corpuscular HGB Conc 34 g/dL (31-36); Mean Corpuscular Hemoglobin 30 pg (27-31); Mean Corpuscular Volume 88 fL (80-97); Mean Platelet Volume 7.1 fL (7.4-10.4); Platelet Count 319 10^3/uL (150-450); Red Blood Count 3.67 10^6 /uL (3.70-4.87); Red Cell Distribution Width 13 % (10-15); White Blood Count 7.1 10^3/uL (3.5-10.8)
[2020-08-27 06:49] LABS: ALT 27 U/L (7-52); AST 25 U/L (13-39); Albumin 3.9 g/dL (3.2-5.2); Albumin/Globulin Ratio 1.3 (1-3); Alkaline Phosphatase 79 U/L (34-104); Anion Gap 8 mmol/L (2-11); BUN/Creatinine Ratio 29.2 (8-20); Blood Urea Nitrogen 35 mg/dL (6-24); CO2 Carbon Dioxide 25 mmol/L (22-32); Calcium 10.2 mg/dL (8.6-10.3); Chloride 106 mmol/L (101-111); EGFR African American 51.8 (>60); EGFR Non-African American 42.8 (>60); Globulin 3.1 g/dL (2-4); Glucose 101 mg/dL (70-100); Potassium 3.9 mmol/L (3.5-5.0); Sodium 139 mmol/L (135-145)
[2020-08-27 06:51] LABS: % Iron Saturation 17 % (15-55); Iron 50 ug/dL (50-212); Total Iron Binding Capacity 286 mcg/dL (250-450); Transferrin 204 mg/dL (203-362); Unsaturated Iron Binding < 271 ug/dL
[2020-08-27 07:02] LABS: TSH Ultra Thyroid Stim Horm 1.81 mcIU/mL (0.34-5.60)
[2020-08-27 07:13] LABS: Folate > 20.00 ng/mL (>3.99)
[2020-08-27 07:14] LABS: Vitamin B12 424 pg/mL (180-914)
[2020-08-27] MEDS: Aspirin EC 81 mg TAB.EC (enteric coated) PO SCH (07:35)
[2020-08-27] MEDS: Enoxaparin 40 MG/0.4 ML SYR SUBCUT SCH (07:36)
[2020-08-27] MEDS: Senna TAB 8.6 mg TAB PO PRN (20:49)
[2020-08-28] MEDS: Aspirin EC 81 mg TAB.EC (enteric coated) PO SCH (08:27)
[2020-08-28] MEDS: Enoxaparin 40 MG/0.4 ML SYR SUBCUT SCH (08:30)
[2020-08-29 06:55] LABS: ABS Basophils 0.1 10^3/ul (0-0.2); ABS Eosinophils 0.2 10^3/ul (0-0.6); ABS Lymphocytes 1.7 10^3/ul (1.0-4.8); ABS Monocytes 0.8 10^3/ul (0-0.8); ABS Neutrophils 4.7 10^3/ul (1.5-7.7); Eosinophil % 2.8 %; Hematocrit 33 % (35-47); Hemoglobin 11.2 g/dL (12.0-16.0); Lymphocyte % 22.3 %; Mean Corpuscular HGB Conc 34 g/dL (31-36); Mean Corpuscular Hemoglobin 30 pg (27-31); Mean Corpuscular Volume 89 fL (80-97); Mean Platelet Volume 6.9 fL (7.4-10.4); Platelet Count 349 10^3/uL (150-450); Red Blood Count 3.76 10^6 /uL (3.70-4.87); Red Cell Distribution Width 13 % (10-15); White Blood Count 7.4 10^3/uL (3.5-10.8)
[2020-08-29] MEDS: Aspirin EC 81 mg TAB.EC (enteric coated) PO SCH (08:26)
[2020-08-29] MEDS: Enoxaparin 40 MG/0.4 ML SYR SUBCUT SCH (08:27)
[2020-08-30] MEDS: Aspirin EC 81 mg TAB.EC (enteric coated) PO SCH (11:07)
[2020-08-30] MEDS: Enoxaparin 40 MG/0.4 ML SYR SUBCUT SCH (11:07)
[2020-08-31 06:19] LABS: ABS Basophils 0.1 10^3/ul (0-0.2); ABS Eosinophils 0.2 10^3/ul (0-0.6); ABS Lymphocytes 1.7 10^3/ul (1.0-4.8); ABS Monocytes 0.9 10^3/ul (0-0.8); ABS Neutrophils 5.1 10^3/ul (1.5-7.7); Eosinophil % 2.2 %; Hematocrit 32 % (35-47); Hemoglobin 11.1 g/dL (12.0-16.0); Mean Corpuscular HGB Conc 34 g/dL (31-36); Mean Corpuscular Hemoglobin 30 pg (27-31); Mean Corpuscular Volume 88 fL (80-97); Platelet Count 348 10^3/uL (150-450); Red Blood Count 3.67 10^6 /uL (3.70-4.87); Red Cell Distribution Width 13 % (10-15); White Blood Count 7.9 10^3/uL (3.5-10.8)
[2020-08-31 06:44] LABS: Albumin 3.7 g/dL (3.2-5.2); Albumin/Globulin Ratio 1.2 (1-3); BUN/Creatinine Ratio 30.8 (8-20); Globulin 3.1 g/dL (2-4); Potassium 4.1 mmol/L (3.5-5.0); Total Bilirubin 0.4 mg/dL (0.2-1.0); Total Protein 6.8 g/dL (6.4-8.9)
[2020-08-31] MEDS: Aspirin EC 81 mg TAB.EC (enteric coated) PO SCH (08:31)
[2020-08-31] MEDS: Enoxaparin 40 MG/0.4 ML SYR SUBCUT SCH (08:33)
[2020-09-01] MEDS: Aspirin EC 81 mg TAB.EC (enteric coated) PO SCH (09:19)
[2020-09-01] MEDS: Enoxaparin 40 MG/0.4 ML SYR SUBCUT SCH (09:21)
[2020-09-02] MEDS: Aspirin EC 81 mg TAB.EC (enteric coated) PO SCH (10:22)
[2020-09-02] MEDS: Enoxaparin 40 MG/0.4 ML SYR SUBCUT SCH (10:23)
[2020-09-03] MEDS: Enoxaparin 40 MG/0.4 ML SYR SUBCUT SCH (09:20)
[2020-09-03] MEDS: Aspirin EC 81 mg TAB.EC (enteric coated) PO SCH (09:21)
[2020-09-04] MEDS: Aspirin EC 81 mg TAB.EC (enteric coated) PO SCH (10:28)
[2020-09-04] MEDS: Enoxaparin 40 MG/0.4 ML SYR SUBCUT SCH (10:37)
[2020-09-05] MEDS: Aspirin EC 81 mg TAB.EC (enteric coated) PO SCH (08:09)
[2020-09-05] MEDS: Senna TAB 8.6 mg TAB PO PRN (08:09)
[2020-09-05] MEDS: Enoxaparin 40 MG/0.4 ML SYR SUBCUT SCH (08:11)
[2020-09-06] MEDS: Aspirin EC 81 mg TAB.EC (enteric coated) PO SCH (07:41)
[2020-09-06] MEDS: Enoxaparin 40 MG/0.4 ML SYR SUBCUT SCH (07:43)
[2020-09-06 08:40] LABS: BUN/Creatinine Ratio 32.2 (8-20); Calcium 10.3 mg/dL (8.6-10.3); EGFR African American 52.8 (>60); EGFR Non-African American 43.6 (>60); Potassium 4.5 mmol/L (3.5-5.0)
[2020-09-07 05:54] VITALS: BP 137/56
[2020-09-07 06:03] LABS: ABS Basophils 0.1 10^3/ul (0-0.2); ABS Eosinophils 0.3 10^3/ul (0-0.6); ABS Monocytes 0.6 10^3/ul (0-0.8); ABS Neutrophils 4.5 10^3/ul (1.5-7.7); Eosinophil % 3.4 %; Hematocrit 29 % (35-47); Lymphocyte % 27.3 %; Mean Corpuscular HGB Conc 34 g/dL (31-36); Mean Corpuscular Hemoglobin 30 pg (27-31); Mean Corpuscular Volume 88 fL (80-97); Mean Platelet Volume 6.7 fL (7.4-10.4); Platelet Count 360 10^3/uL (150-450); Red Blood Count 3.35 10^6 /uL (3.70-4.87); Red Cell Distribution Width 13 % (10-15); White Blood Count 7.5 10^3/uL (3.5-10.8)
[2020-09-07 06:19] LABS: Albumin 3.7 g/dL (3.2-5.2); Albumin/Globulin Ratio 1.3 (1-3); BUN/Creatinine Ratio 32.5 (8-20); Calcium 9.9 mg/dL (8.6-10.3); EGFR African American 51.8 (>60); EGFR Non-African American 42.8 (>60); Globulin 2.8 g/dL (2-4); Potassium 4.2 mmol/L (3.5-5.0); Total Bilirubin 0.3 mg/dL (0.2-1.0); Total Protein 6.5 g/dL (6.4-8.9)
[2020-09-07] MEDS: Aspirin EC 81 mg TAB.EC (enteric coated) PO SCH (07:11)
[2020-09-07] MEDS: Enoxaparin 40 MG/0.4 ML SYR SUBCUT SCH (07:12)
== END 2020-09-07 12:25 | disposition home health service (06) | DRG 57 ==
LOC: PMRU 16:48
PROVIDERS: ADMIT Physical Medicine & Rehabilitation; ATTEND Physical Medicine & Rehabilitation